=== PATIENT | male | born 1970 | race Caucasian/White ===

== ENCOUNTER 2019-03-06 11:30 | Emergency (ER) | payer BC ==
[~2019-03-06] VITALS: Ht 177.8 cm; Wt 78.2 kg
--- NOTE | 2019-03-06 12:44 | REP ---
Clinical: Trauma/injury. Technique: AP, lateral, bilateral oblique and sunrise views of the right knee. Findings: Evidence of prior ACL repair. Mild age-related changes noted. No acute fracture or dislocation. No obvious effusion. Impression: No acute fracture dislocation. Electronically Signed by Osbaldo Carranza MD 03/06/2019 12:34 P
[2019-03-06] MEDS ORDERED: LIDOCAINE W/EPINEPHRINE 1% 20ML VIAL SC ONE (13:30)
[2019-03-06] MEDS ORDERED: ADACEL/BOOSTRIX VACCINE (DIPHTH/PERTUSS/ACELL/TETANUS)0.5ML SYR (90715) IM ONE (13:30)
[2019-03-06] MEDS ORDERED: KEFL500C17 PO (13:38)
[2019-03-06 15:00] VITALS: BP 125/69
== END 2019-03-06 14:58 | disposition home or self-care (01) ==
LOC: M ED 11:30 → EDBD 11:30 → M ED 14:58
DX: S81.011A Laceration without foreign body, right knee, initial encounter (principal); T14.8XXA Other injury of unspecified body region, initial encounter; V18.4XXA Pedal cycle driver injured in noncollision transport accident in traffic accident, initial encounter; Y92.410 Unspecified street and highway as the place of occurrence of the external cause